=== PATIENT | male | born 1985 | race Caucasian/White ===

== ENCOUNTER 2017-10-08 23:51 | Emergency (ER) | payer OTHER ==
[~2017-10-08] VITALS: Ht 190.5 cm; Wt 208.7 kg
[2017-10-08 23:56] VITALS: Ht 190.5 cm; Wt 208.7 kg
[2017-10-09 01:11] LABS: PLATELET COUNT 236 x10^3mcL (130-400); RED CELL DISTRIBUTION WIDTH 12.9 % (11.5-14.5)
[2017-10-09 01:25] LABS: UA SPECIFIC GRAVITY >=1.030 (1.005-1.035); microscopic required? YES; urine erythrocyte NEGATIVE (NEGATIVE)
[2017-10-09 01:26] LABS: CALCIUM 8.8 mg/dL (8.5-10.1); CARBON DIOXIDE 31.7 mmol/L (21-32); CHLORIDE SERUM 103 mmol/L (98-107); GFR1 > 60 mL/min; GLUCOSE SERUM 103 mg/dL (74-106); POTASSIUM SERUM 3.3 mmol/L (3.5-5.1); SODIUM SERUM 141 mmol/L (136-145)
[2017-10-09 01:31] LABS: ALBUMIN 3.4 g/dL (3.4-5.0); ALKALINE PHOSPHATASE 76 U/L (46-116); ALT/SGPT 44 U/L (16-63); AST/SGOT 27 U/L (15-37); TOTAL PROTEIN, SERUM 8.2 g/dL (6.4-8.2)
[2017-10-09 01:41] LABS: BAND NEUTROPHIL 6 % (0-10); BASOPHIL 0 % (0-2); METAMYELOCTE 1 % (0-2); MONOCYTE 8 % (0-7); MYELOCYTE 3 % (0-2); SEGMENTED NEUTROPHILS 66 % (37-75)
[2017-10-09 01:42] LABS: PLATELET MORPHOLOGY PLATELETS NORMAL; rbc morphology (normal/abnorm) NORMAL (NORMAL)
[2017-10-09 02:33] VITALS: BP 156/96
== END 2017-10-09 02:33 | disposition home or self-care (01) ==
LOC: ED 23:51
PROVIDERS: Emergency Medicine
DX: L03.115 Cellulitis of right lower limb (principal)
CPT/HCPCS: J3490; J7030

== ENCOUNTER 2017-10-12 12:11 | Emergency (ER) | payer OTHER ==
[~2017-10-12] VITALS: Ht 203.2 cm; Wt 206.8 kg
[2017-10-12 12:33] VITALS: Ht 203.2 cm; Wt 206.8 kg
[2017-10-12 14:55] VITALS: BP 152/80
== END 2017-10-12 14:55 | disposition home or self-care (01) ==
LOC: ED 12:11
DX: L03.115 Cellulitis of right lower limb (principal)

== ENCOUNTER 2017-10-18 08:21 | Emergency (ER) | payer OTHER ==
[~2017-10-18] VITALS: Ht 190.5 cm; Wt 213.2 kg
[2017-10-18 08:34] VITALS: BP 167/103; Ht 190.5 cm; Wt 213.2 kg
== END 2017-10-18 10:26 | disposition home or self-care (01) ==
LOC: ED 08:21
DX: L03.115 Cellulitis of right lower limb (principal)

== ENCOUNTER 2017-10-20 04:16 | Emergency (ER) | payer OTHER ==
[~2017-10-20] VITALS: Ht 190.5 cm; Wt 216.4 kg
[2017-10-20 04:20] VITALS: Ht 190.5 cm; Wt 216.4 kg
[2017-10-20 04:46] LABS: BASOPHIL % 0.7 % (0-2); PLATELET COUNT 313 x10^3mcL (130-400); RED CELL DISTRIBUTION WIDTH 13.8 % (11.5-14.5)
[2017-10-20 04:51] LABS: CALCIUM 8.3 mg/dL (8.5-10.1); CARBON DIOXIDE 27.4 mmol/L (21-32); CHLORIDE SERUM 105 mmol/L (98-107); GFR1 > 60 mL/min; GLUCOSE SERUM 115 mg/dL (74-106); POTASSIUM SERUM 3.6 mmol/L (3.5-5.1); SODIUM SERUM 140 mmol/L (136-145)
[2017-10-20 04:55] LABS: ALKALINE PHOSPHATASE 86 U/L (46-116); ALT/SGPT 47 U/L (16-63); AST/SGOT 26 U/L (15-37); BILIRUBIN TOTAL 0.53 mg/dL (0.20-1.00)
[2017-10-20 04:56] LABS: ALBUMIN 3.2 g/dL (3.4-5.0)
[2017-10-20 05:09] LABS: microscopic required? NO
[2017-10-20 05:46] LABS: UA SPECIFIC GRAVITY >=1.030 (1.005-1.035); urine erythrocyte NEGATIVE (NEGATIVE)
[2017-10-20 06:18] VITALS: BP 169/93
== END 2017-10-20 06:19 | disposition home or self-care (01) ==
LOC: ED 04:16
PROVIDERS: Emergency Medicine
DX: L23.3 Allergic contact dermatitis due to drugs in contact with skin (principal); R22.41 Localized swelling, mass and lump, right lower limb; D69.0 Allergic purpura; T36.1X5A Adverse effect of cephalosporins and other beta-lactam antibiotics, initial encounter; Z88.1 Allergy status to other antibiotic agents; Y92.89 Other specified places as the place of occurrence of the external cause
CPT/HCPCS: 36415; J7512; Q0092; Q0163